=== PATIENT | male | born 1935 | race Caucasian/White ===

== ENCOUNTER → 2017-05-21 | Outpatient (CLI) | payer OTHER, MEDICARE | LOC: RAD 16:48 | DX: J40 Bronchitis, not specified as acute or chronic (principal); J90 Pleural effusion, not elsewhere classified; R93.8 Abnormal findings on diagnostic imaging of other specified body structures ==

== ENCOUNTER → 2017-08-03 | Outpatient (CLI) | payer OTHER, MEDICARE | LOC: RAD 11:57 | DX: I27.82 Chronic pulmonary embolism (principal); J18.9 Pneumonia, unspecified organism; J98.11 Atelectasis ==

== ENCOUNTER → 2017-09-10 | Outpatient (CLI) | payer OTHER, MEDICARE | LOC: RAD 09:42 | DX: J98.4 Other disorders of lung (principal); J90 Pleural effusion, not elsewhere classified; I27.82 Chronic pulmonary embolism; J40 Bronchitis, not specified as acute or chronic ==

== ENCOUNTER → 2020-10-03 | Outpatient (CLI) | payer OTHER, MEDICARE | LOC: RAD 12:38 | PROVIDERS: ATTEND Internal Medicine | DX: J90 Pleural effusion, not elsewhere classified (principal); J98.4 Other disorders of lung ==